=== PATIENT | male | born 1975 | race Caucasian/White ===

== ENCOUNTER → 2016-08-13 | Outpatient (CLI) | payer OTHER ==
[~2016-08-13] MED LIST: AMOX875T3 PO; CYCL5TAB PO; EPP3/2 IM; GABA-113 PO; HYDR-5688 PO; IBUP-1050 PO
--- NOTE | 2016-08-13 09:45 | DIAGNOSTIC IMAGING REPORT ---
L-SPINE MIN 4 VIEWS ROUTINE CLINICAL HISTORY: Low back pain with right leg radiculopathy. COMPARISON STUDY: 05/09/2011 FINDINGS: There is a minor spinal curvature convex to the right. No fractures or subluxations are visualized. There are no erosive or destructive changes. There are minor degenerative changes. IMPRESSION: Minor degenerative change. No fractures, subluxations, or destructive lesions are visualized. Electronically signed by: Erik Patton M.D. 08/13/2016 9:44 AM Dictated Date/Time: 08/13/2016 9:43 AM
== END | disposition home or self-care (01) ==
LOC: C.RADPV 09:23
PROVIDERS: ATTEND Family Medicine
DX: M54.40 Lumbago with sciatica, unspecified side (principal)

== ENCOUNTER → 2017-04-23 | Outpatient (CLI) | payer OTHER ==
[~2017-04-23] MED LIST changes: +vitamin d PO
[2017-04-23 14:02] LABS: BLOOD UREA NITROGEN 18 mg/dl (7-18); CALCIUM 9.6 mg/dl (8.5-10.1); CARBON DIOXIDE 28 mmol/L (21-32); CHOLESTEROL 209 mg/dl (0-200); CREATININE 0.77 mg/dl (0.60-1.40); GLUCOSE 104 mg/dl (70-99); POTASSIUM 4.1 mmol/L (3.5-5.1); SODIUM 138 mmol/L (136-145)
== END | disposition home or self-care (01) ==
LOC: C.LABPVFM 07:42
PROVIDERS: ATTEND Family Medicine
DX: E55.9 Vitamin D deficiency, unspecified (principal); Z13.220 Encounter for screening for lipoid disorders; Z13.1 Encounter for screening for diabetes mellitus; R53.83 Other fatigue

== ENCOUNTER 2017-11-10 17:09 | Emergency (ER) | payer OTHER ==
[~2017-11-10] VITALS: Ht 177.8 cm; Wt 72.0 kg
[~2017-11-10 17:09] MED LIST changes: -AMOX875T3 PO
[2017-11-10 17:28] VITALS: TEMP 37.1; Ht 177.8 cm; Wt 72.0 kg
--- NOTE | 2017-11-10 18:38 | EMERGENCY ROOM VISIT NOTE ---
History Report prepared by Corina: Yaa Enamorado Under the Supervision of: Dr. Yusuf Beasley M.D. First contact with patient: 18:23 Chief Complaint: NECK PAIN Stated Complaint: PAIN IN NECK, BACK, ARM, R SIDE History of Present Illness The patient is a 42 year old white male with a history of migraines who presents to the ED with a cc of worsening right-sided neck pain beginning over the last month. He describes the pain as sharp and rates it at a 9/10. 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 He denies any trauma to the area. He states that he took Oxycodone and Gabapentin for his pain but states that it did not help to alleviate his pain. He states that he has done physical therapy in the past but that it did not help his neck pain. Source of History: patient Onset: over the last month Position: neck Symptom Intensity: rated at a 9/10 Quality: sharp Timing: worsening Review of Systems See HPI for pertinent positives and negatives. A total of ten systems were reviewed and were otherwise negative. Past Medical & Surgical Medical Problems: (1) Migraine Unspecified W/O Intractable Migraine (2) Schizophrenic Disorders, Residual Type, Unspecified (3) Tobacco Use Disorder Family History Cancer Hypertension Social History Smoking Status: Current Every Day Smoker Alcohol Use: none Drug Use: none Marital Status: Housing Status: lives alone Occupation Status: employed Current/Historical Medications Scheduled Epinephrine (Epipen), 0.3 MG IM UD Gabapentin (Neurontin), 300 MG PO TID [vitamin d], 2,000 INTER.UNIT PO DAILY Scheduled PRN Cyclobenzaprine Hcl (Flexeril), 5 MG PO DAILY PRN for SPASMS Hydrocodone/Acetaminophen 5MG/325MG ([place] 5MG/325MG), 1 TAB PO DAILY PRN for Pain Ibuprofen (Advil), 200-600 MG PO Q4H PRN for Pain Allergies Coded Allergies: Tramadol (Unverified Allergy, Mild, itchy, 01/01/16) Physical Exam Vital Signs Date Time Temp Pulse Resp B/P (MAP) Pulse Ox O2 Delivery O2 Flow Rate FiO2 11/10/17 19:36 72 20 129/89 98 Room Air 11/10/17 17:28 37.1 68 20 135/82 98 Room Air Physical Exam GENERAL: Awake, alert, well-appearing, NAD, wearing glasses, edentulous HENT: Normocephalic, atraumatic. EYES: Normal conjunctiva. Sclera non-icteric. PERRL. No anisocoria. NECK: Supple. No nuchal rigidity. FROM. 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 Medical Decision & Procedures ER Provider Diagnostic Interpretation: Radiology results as stated below per my review and radiologist interpretation: CERVICAL SPINE 2 OR 3 VIEWS CLINICAL HISTORY: Right sided paraspinal tenderness to palpation. COMPARISON STUDY: Cervical spine MRI January 01, 2016. FINDINGS: Straightening of the normal cervical lordosis is noted. There is no fracture or suspicious lesion. There is moderate disc space narrowing at C6-C7 with mild disc space narrowing and numerous additional levels. There is mild multilevel facet arthrosis. IMPRESSION: 1. No acute cervical spine fracture. 2. Mild to moderate disc space narrowing at C6-C7. Electronically signed by: Javed Pastor M.D. 11/10/2017 7:34 PM Dictated Date/Time: 11/10/2017 7:32 PM Medications Administered Medications (Trade) Dose Ordered Sig/Wallace Route Start Time Stop Time Status Last Admin Dose Admin Diazepam (Valium Tab) 5 mg NOW ONCE PO 11/10/17 18:45 11/10/17 18:46 DC 11/10/17 18:46 5 MG ED Course 1832: The patient was evaluated in room B7. A complete history and physical exam was performed. 2000: I reevaluated the patient and he feels well. Discussed results and discharge instructions: He verbalized understanding and agreement. The patient is ready for discharge. Medical Decision The patient is a 42 year old white male with a history of migraines who presents to the ED with a cc of worsening right-sided neck pain beginning over the last month. Nursing notes reviewed. Ancillary studies and prior records reviewed. Differential diagnosis: Etiologies such as fracture, dislocation, neurovascular compromise, compartment syndrome, soft tissue injury, as well as others were entertained. Patient was seen and evaluated the bedside. Patient does have a known history of some neck pain and issues. The patient does take chronic pain medication and to see pain management. Patient states he has tried Motrin Tylenol as well as Flexeril and does take narcotic medication. The patient has had some very mild relief. Patient denies any recent injury. 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 I do not believe he requires a CT or MRI at this time. Less likely central cord given a great physics technician strength. Patient did receive some medications and did have a C-spine film completed. Patient does have noted degenerative disc disease. The patient was informed of these findings. Patient was feeling mildly improved. I did discuss that he would not be given any other prescription medications as he is already taking a number of other items. Patient was told he may benefit from pain management and discussing with them injections as he already does see them. Patient was told he can try some gentle range of motion exercises as well as topical medications moist heat and ice. Patient was counseled on smoking cessation. Patient was given strict follow-up, discharge, and return precautions. All questions were answered. Patient was deemed suitable for outpatient follow-up at this time. Patient agreed with the plan of care and was safely discharged home. Medication Reconcilliation Current Medication List: was personally reviewed by me Blood Pressure Screening Patient's blood pressure: Normal blood pressure Impression Primary Impression: Cervicalgia Additional Impressions: Trapezius muscle spasm DDD (degenerative disc disease), cervical Encounter for smoking cessation counseling Scribe Attestation The scribe's documentation has been prepared under my direction and personally reviewed by me in its entirety. I confirm that the note above accurately reflects all work, treatment, procedures, and medical decision making performed by me. Departure Information Dispostion Home / Self-Care Referrals No Doctor, Assigned (PCP) Forms HOME CARE DOCUMENTATION FORM, IMPORTANT VISIT INFORMATION, WORK / SCHOOL INSTRUCTIONS Patient Instructions ED Neck Pain No Trauma, ED Smoking Cessation, Muscle Spasm, My [facility] Additional Instructions Please return to the emergency department if you have worsening or recurrent symptoms not amenable to at-home treatment. Please call for a follow-up appointment with her primary care physician. Please take your medications as prescribed. If you have other concerns and/or complaints please feel free to also call your primary care physician's office or return the ED for further evaluation, management, and treatment. You were found to have an elevated blood pressure today (>120 sytolic or >90 diastolic). Per medicare guidelines, you need to follow up with this blood pressure screening with your Primary Care Physician (PCP). For a new PCP call [phone]. You received narcotic or benzodiazepene medication while in the emergency room today. This is an addictive medication that may cause drowziness as well as constipation. Do not drive, operate heavy machinery, or drink alcohol under the influence of this medication. You may take 600 mg Ibuprofen every 6 hours as needed for pain/fever with food unless told by your physician not to take NSAIDs. You may take tylenol 650 mg every 6 hours as needed for pain/fever unless told by your physician to not take it or have liver problems. You may take motrin and tylenol separately or at the same time. Take your medications as prescribed. May try topicals such as icy hot, BenGay, and/or Biofreeze. You may also try moist heat and/or ice. Please continue gentle range of motion exercising consider follow-up with pain management to discuss other modalities to help with your discomfort. He may also benefit from physical therapy. You have been examined and treated today on an emergency basis only. This is not a substitute for, or an effort to provide, complete comprehensive medical care. It is impossible to recognize and treat all injuries or illnesses in a single emergency department visit. It is therefore important that you follow up closely with [facility], your PCP, and/or your specialist(s). Call as soon as possible for an appointment. Thank you for your time and consideration. I look forward to speaking with you again soon. Please don't hesitate to call us if you have any questions. Problem Qualifiers
[2017-11-10] MEDS ORDERED: DIAZEPAM 5MG TAB PO ONE (18:45)
[2017-11-10] MEDS: KETOROLAC TROMETHAMINE 60 MG/2 ML VIAL IM STA ×2 (18:46→18:47)
--- NOTE | 2017-11-10 19:35 | DIAGNOSTIC IMAGING REPORT ---
CERVICAL SPINE 2 OR 3 VIEWS CLINICAL HISTORY: Right sided paraspinal tenderness to palpation. COMPARISON STUDY: Cervical spine MRI January 01, 2016. FINDINGS: Straightening of the normal cervical lordosis is noted. There is no fracture or suspicious lesion. There is moderate disc space narrowing at C6-C7 with mild disc space narrowing and numerous additional levels. There is mild multilevel facet arthrosis. IMPRESSION: 1. No acute cervical spine fracture. 2. Mild to moderate disc space narrowing at C6-C7. Electronically signed by: Javed Pastor M.D. 11/10/2017 7:34 PM Dictated Date/Time: 11/10/2017 7:32 PM
[2017-11-10 20:18] VITALS: BP 121/80; PULSE 69; O2SAT 97
== END 2017-11-10 20:18 | disposition home or self-care (01) ==
LOC: C.EDB 17:10
DX: M50.30 Other cervical disc degeneration, unspecified cervical region (principal); M62.830 Muscle spasm of back; Z71.6 Tobacco abuse counseling; F17.200 Nicotine dependence, unspecified, uncomplicated; Z88.5 Allergy status to narcotic agent